=== PATIENT | female | born 1995 | race Hispanic/Latino ===

== ENCOUNTER 2018-10-10 02:41 | Emergency (ER) | payer SELFPAY ==
[2018-10-10 02:58] VITALS: BP 108/64
[2018-10-10] MEDS ORDERED: ZOFRAN ODT PO ONE (03:11)
--- NOTE | 2018-10-10 03:17 | Emergency Department Report ---
ED Abdominal Pain HPI - General Chief Complaint: Abdominal Pain Stated Complaint: BACK PAIN/ABD PAIN Time Seen by Provider: 10/10/18 03:10 Source: patient, EMS Mode of arrival: Wheelchair Limitations: No Limitations - History of Present Illness Initial Comments: Patient is a 23-year-old female who presents with sitting symptoms of abdominal cramping, nausea vomiting back pain and vaginal discharge, there is no fever no chills nausea or vomiting symptoms exacerbated by mouth intake. Patient denies concern for STD, last normal menstrual cycle was 3 months ago states cycles ar irregular. states she had Positive home test at home yesterday. There is no vaginal bleeding , no fever or chills, Complaint: abdominal pain Onset/Timin -: month(s) Location: LLQ, RLQ, suprapubic Radiation: L flank, R flank Migration to: no migration, suprapubic Severity: moderate Severity scale (0 -10): 2 Quality: cramping Consistency: intermittent Improves With: rest Worsens With: eating, movement Associated Symptoms: nausea, vomiting - Related Data LMP Date: 09/09/18 LMP (females 10-50): other (irreg) Previous Rx's Medication Instructions Recorded Last Taken Type Fluconazole [Diflucan TAB] 150 mg PO ONCE #1 tablet 10/10/18 Unknown Rx Ibuprofen [Motrin 800 MG tab] 800 mg PO Q8HR PRN #30 tablet 10/10/18 Unknown Rx Nitrofurantoin [place]/M-Cryst 100 mg PO BID 7 Days #14 capsule 10/10/18 Unknown Rx [Macrobid CAP] metroNIDAZOLE [Flagyl] 500 mg PO Q12HR 10 Days #20 tab 10/10/18 Unknown Rx Allergies Allergy/AdvReac Type Severity Reaction Status Date / Time Penicillins Allergy Rash Verified 10/10/18 02:46 ED Review of Systems ROS: Stated complaint: BACK PAIN/ABD PAIN Other details as noted in HPI Constitutional: denies: chills, fever Eyes: denies: eye pain, eye discharge, vision change ENT: denies: ear pain, throat pain Respiratory: denies: cough, shortness of breath, wheezing Cardiovascular: denies: chest pain, palpitations Endocrine: no symptoms reported Gastrointestinal: abdominal pain (cramping), nausea, vomiting. denies: diarrhe a, constipation Genitourinary: urgency, dysuria, frequency. denies: hematuria, discharge, abnormal menses, dyspareunia Musculoskeletal: denies: back pain, joint swelling, arthralgia Skin: denies: rash, lesions Neurological: denies: headache, weakness, paresthesias Psychiatric: denies: anxiety, depression Hematological/Lymphatic: denies: easy bleeding, easy bruising ED Past Medical Hx - Past Medical History Previous Medical History?: No - Surgical History Past Surgical History?: Yes Additional Surgical History: Right arm biopsy - Social History Smoking Status: Never Smoker - Medications Home Medications: Home Medications Medication Instructions Recorded Confirmed Last Taken Type Fluconazole [Diflucan TAB] 150 mg PO ONCE #1 tablet 10/10/18 Unknown Rx Ibuprofen [Motrin 800 MG tab] 800 mg PO Q8HR PRN #30 tablet 10/10/18 Unknown Rx Nitrofurantoin [place]/M-Cryst 100 mg PO BID 7 Days #14 capsule 10/10/18 Unknown Rx [Macrobid CAP] metroNIDAZOLE [Flagyl] 500 mg PO Q12HR 10 Days #20 tab 10/10/18 Unknown Rx ED Physical Exam - General Limitations: No Limitations General appearance: alert, in no apparent distress - Head Head exam: Present: atraumatic, normocephalic - Eye Eye exam: Present: normal appearance, PERRL, EOMI Pupils: Present: normal accommodation - ENT ENT exam: Present: normal orophraynx, mucous membranes moist, TM's normal bilaterally, normal external ear exam - Neck Neck exam: Present: normal inspection, full ROM. Absent: tenderness, lymphadenopathy, thyromegaly - Respiratory Respiratory exam: Present: normal lung sounds bilaterally, chest wall tenderness (rifht lateral chest wall ). Absent: respiratory distress, wheezes, rales, rhonchi, stridor - Cardiovascular Cardiovascular Exam: Present: regular rate, normal rhythm, normal heart sounds. Absent: systolic murmur, diastolic murmur, rubs, gallop - GI/Abdominal GI/Abdominal exam: Present: soft, tenderness (bilat lower ), normal bowel so unds. Absent: distended, guarding, rebound, rigid, mass, bruit, hernia - Rectal Rectal exam: Present: deferred - External exam: Present: normal external exam. Absent: erythema, swelling, lesions, lacerations, ecchymosis, bleeding Speculum exam: Present: erythema, vaginal discharge (white thick malodorous), cervical discharge (clear ). Absent: vaginal bleeding, foreign body, tissue, laceration - Extremities Exam Extremities exam: Present: normal inspection, full ROM, tenderness, pedal edema - Back Exam Back exam: Present: normal inspection, CVA tenderness (R) - Neurological Exam Neurological exam: Present: alert, oriented X3, CN II-XII intact, normal gait, reflexes normal. Absent: motor sensory deficit - Psychiatric Psychiatric exam: Present: normal affect, normal mood - Skin Skin exam: Present: warm, dry, intact, normal color. Absent: rash ED Course Vital Signs 10/10/18 02:53 Temperature 97.3 F L Pulse Rate 79 Respiratory 20 Rate Blood Pressure 108/64 O2 Sat by Pulse 100 Oximetry ED Medical Decision Making - Lab Data Result diagrams: 10/10/18 03:30 10/10/18 03:30 - Medical Decision Making HCG < 2, Wet prep normal, vaginal exam : pos for vaginal erythema white thick discharge malodorous, there is no fever no chills no n/v pt is tolerating po intake there is no abd tenderness on exam, GC/Chl cultures are pending , UA pos for wbc, leuk, mild rbc , there is no hematuria , there is urinary frequency and urgency, plan: tx for Exposure to UTI, Cover STI exposure, This no Pyelonephritis nor renal stone, there are no flank pain or cva tenderness, will tx with rocephin, azithromycin , dc to home with diflucan flagyl, macrobid pt will follow up with pcp in 2-3 days return to ed if symptoms worsen. pt verbalized agreement and understanding of discharge plan. Critical care attestation.: If time is entered above; I have spent that time in minutes in the direct care of this critically ill patient, excluding procedure time. ED Disposition Clinical Impression: UTI (urinary tract infection) Qualifiers: Urinary tract infection type: acute cystitis Hematuria presence: without hematuria Qualified Code(s): N30.00 - Acute cystitis without hematuria Vaginitis Qualifiers: Chronicity: acute Qualified Code(s): N76.0 - Acute vaginitis Disposition: DC-01 TO HOME OR SELFCARE Is pt being admited?: No Does the pt Need Aspirin: No Condition: Stable Instructions: Urinary Tract Infection in Women (ED), Vaginitis (ED), Bacterial Vaginosis (ED) Prescriptions: Fluconazole [Diflucan TAB] 150 mg PO ONCE #1 tablet metroNIDAZOLE [Flagyl] 500 mg PO Q12HR 10 Days #20 tab Nitrofurantoin [place]/M-Cryst [Macrobid CAP] 100 mg PO BID 7 Days #14 capsule Ibuprofen [Motrin 800 MG tab] 800 mg PO Q8HR PRN #30 tablet PRN Reason: pain Referrals: EDDA SPRINGER MD [Staff Physician] - 3-5 Days Forms: Work/School Release Form(ED) Time of Disposition: 04:58
[2018-10-10 03:30] LABS: Bacteria,Urine 1+ /HPF (Negative); Bilirubin,Urine NEG (Negative); Blood,Urine NEG (Negative); Color,Urine Yellow (Yellow); Mucus,Urine FEW /HPF; Protein,Urine <15 mg/dL mg/dL (Negative); Urobilinogen,Urine < 2.0 mg/dL (<2.0)
[2018-10-10 03:42] LABS: Basophils # (Auto) 0.1 K/mm3 (0.0-0.1); Basophils % (Auto) 0.7 % (0.0-1.8); Eosinophils # (Auto) 0.2 K/mm3 (0.0-0.4); Eosinophils % (Auto) 2.2 % (0.0-4.3); Hemoglobin 11.5 gm/dl (10.1-14.3); Lymphocytes # (Auto) 2.6 K/mm3 (1.2-5.4); Lymphocytes % (Auto) 33.6 % (13.4-35.0); Mean Corpuscular HGB Conc 33 % (30-34); Mean Corpuscular Volume 83 fl (79-97); Monocytes # (Auto) 0.5 K/mm3 (0.0-0.8); Monocytes % (Auto) 6.3 % (0.0-7.3); Platelet Count 254 K/mm3 (140-440); Red Blood Count 4.22 M/mm3 (3.65-5.03); Red Cell Distribution Width 13.1 % (13.2-15.2)
[2018-10-10 03:58] LABS: Alanine Aminotransferase 12 units/L (7-56); BUN/Creatinine Ratio 20; Blood Urea Nitrogen 12 mg/dL (7-17); Calcium 9.2 mg/dL (8.4-10.2); Hemolysis Index 11
[2018-10-10] MEDS ORDERED: ROCEPHIN/NS 1 GM/50 ML 1 GM/50 ML BAG IV ONE (04:21)
[2018-10-10] MEDS ORDERED: NACL 0.9% 1000 ML 1,000 ML IV ONE (04:21)
[2018-10-10] MEDS ORDERED: ZITHROMAX PO ONE (04:41)
== END 2018-10-10 05:30 | disposition home or self-care (01) ==
LOC: ED 02:41
DX: N39.0 Urinary tract infection, site not specified (principal); N76.0 Acute vaginitis; Z88.0 Allergy status to penicillin; Z98.890 Other specified postprocedural states
CPT/HCPCS: 36415; 80053; 81001; 83690; 84702; 85025; 87076; 87086; 87186; 87210; 87591; 99284; J0696; J7030; Q0162

== ENCOUNTER 2019-12-13 14:56 | Emergency (ER) | payer SELFPAY ==
[2019-12-13 15:15] VITALS: BP 113/69
--- NOTE | 2019-12-13 15:55 | XRay Report ---
HISTORY:wrist injury COMPARISON: None. TECHNIQUE: AP lateral and obliques views were obtained FINDINGS: Bones: No fracture or dislocation. Joint spaces: Maintained. Soft tissues: No significant abnormality. Additional findings: None. IMPRESSION: 1. No significant abnormality. Signer Name: Foreign Jones MD Signed: 12/13/2019 3:50 PM Workstation Name: [id number]
[2019-12-13] MEDS ORDERED: ACETAMINOPHEN 500 MG TAB PO ONE (20:11)
--- NOTE | 2019-12-13 22:06 | Emergency Department Report ---
Upper Extremity - HPI Chief Complaint: Extremity Injury, Upper Stated Complaint: RT HAND/WRIST PAIN Upper Extremity: Right Wrist (pain and swelling), Right Hand (pain) Occurred When: 2 Days Mechanism: Crush, Other (punched a wall in anger) Severity: severe Symptoms: Yes Pain with Movement, Yes Limited Range of Movement (due to pain), Yes Swelling, No Deformity, No Numbness, No Weakness, No Bruising/Ecchymosis Other History: Patient is a nulliparous 24-year-old -[place] female with no past medical history who presents to the ED with complaint of acute onset severe right wrist pain and right hand pain after she punched a wall in anger after she discovered that her boyfriend had been cheating on her 2 days ago. Patient states that in the last 24 hours she has not been able to perform any active range of motion with the right hand and wrist because of pain. Patient denies numbness and tingling or weakness of right hand or wrist, right elbow pain, neck pain, chest pain, shortness of breath, fall, dizziness or headache, nausea and vomiting. ED Review of Systems ROS: Stated complaint: RT HAND/WRIST PAIN Other details as noted in HPI Constitutional: denies: chills, fever Eyes: denies: eye pain, eye discharge, vision change ENT: denies: ear pain, throat pain Respiratory: denies: cough, shortness of breath, wheezing Cardiovascular: denies: chest pain, palpitations Endocrine: no symptoms reported Gastrointestinal: denies: abdominal pain, nausea, diarrhea Genitourinary: denies: urgency, dysuria, discharge Musculoskeletal: joint swelling (right wrist ), arthralgia (right wrist and hand pain ). denies: back pain Skin: denies: rash, lesions Neurological: denies: headache, weakness, paresthesias Psychiatric: denies: anxiety, depression Hematological/Lymphatic: denies: easy bleeding, easy bruising ED Past Medical Hx - Past Medical History Previous Medical History?: No - Surgical History Past Surgical History?: Yes Additional Surgical History: Right arm biopsy - Social History Smoking Status: Never Smoker - Medications Home Medications: Home Medications Medication Instructions Recorded Confirmed Last Taken Type Fluconazole (Nf) [Diflucan TAB] 150 mg PO ONCE #1 tablet 10/10/18 Unknown Rx Nitrofurantoin [place]/M-Cryst 100 mg PO BID 7 Days #14 capsule 10/10/18 Unknown Rx [Macrobid CAP] metroNIDAZOLE [Flagyl] 500 mg PO Q12HR 10 Days #20 tab 10/10/18 Unknown Rx Acetaminophen [Tylenol] 500 mg PO Q6HR PRN #30 tablet 12/13/19 Unknown Rx Cyclobenzaprine [Flexeril] 10 mg PO TID PRN #15 tablet 12/13/19 Unknown Rx Ibuprofen [Motrin 800 MG tab] 800 mg PO Q8HR PRN #30 tablet 12/13/19 Unknown Rx Upper Extremity Exam - Exam General: Vital signs noted. No distress. Alert and acting appropriately. Head and Torso: No HEENT Abnormality, No Neck Tenderness, No Chest/Lungs Abnormality, No Abdominal Tenderness, No Back Tenderness Shoulder Exam: Yes Normal Range of Motion in Shoulder, No Shoulder Tenderness, No Clavicle Tenderness, No Shoulder Deformity, No AC Joint Tenderness Arm Exam: No Arm/Humerus Tenderness, No Arm Deformity Elbow: No Elbow Tenderness, No Normal Range of Motion in Elbow, No Elbow Deformity Forearm: No Forearm Tenderness, No Forearm Deformity, No Pain with Pronation, No Pain with Supination Wrist: Yes Wrist Tenderness, No Normal ROM in Wrist (limited ROM due to pain), No Wrist Deformity, No Snuffbox Tenderness, No Pain with Axial Thumb Compression Hand: Yes Hand Tenderness, Yes Normal ROM in Digit(s), No Hand Deformity, No Digit Tenderness, No Digit(s) Deformity, No Tendon Dysfunction CMS Exam: No Broken Skin, No Normal Distal Pulses, No Normal Capillary Refill, No Normal Distal Sensation ED Course Vital Signs 12/13/19 15:14 Temperature 97.7 F Pulse Rate 84 Respiratory 16 Rate Blood Pressure 113/69 [Right] O2 Sat by Pulse 99 Oximetry ED Medical Decision Making - Radiology Data Radiology results: report reviewed, image reviewed Findings [facility] [address] [place] [address] XRay Report Signed Patient: RUBEN BANSAL MR#: [id number] : 1995 Acct:[id number] Age/Sex: 24 / F ADM Date: 12/13/19 Loc: ED Attending Dr: Ordering Physician: ED MD MILY Date of Service: 12/13/19 Procedure(s): XR wrist 3+V RT Accession Number(s): [id number] cc: ED MD MILY Fluoro Time In Minutes: HISTORY:wrist injury COMPARISON: None. TECHNIQUE: AP lateral and obliques views were obtained FINDINGS: Bones: No fracture or dislocation. Joint spaces: Maintained. Soft tissues: No significant abnormality. Additional findings: None. IMPRESSION: 1. No significant abnormality. Signer Name: Foreign Jones MD Signed: 12/13/2019 3:50 PM Workstation Name: [id number] Transcribed By: WG Dictated By: Foreign Jones MD Electronically Authenticated By: Foreign Jones MD Signed Date/Time: 12/13/191549 DD/ 49 TD/TT: - Medical Decision Making This is a nulliparous 24-year-old -[place] female with no past medical history who presents to the ED with complaint of acute onset severe right wrist pain and right hand pain after she punched a wall in anger after she discovered that her boyfriend had been cheating on her 2 days ago. Patient states that in the last 24 hours she has not been able to perform any active range of motion with the right hand and wrist because of pain. In the ED, patient is alert and oriented x3 and is not in distress but appears to be in pain. Patient was treated for pain in the ED. The right wrist x-ray shows no acute fractures or subluxations. Urinalysis unremarkable. Patient right wrist was splinted with a Velcro splint the patient was discharged home on pain medications and muscle relaxant and and was advised to follow-up with her primary care physician in 5 to 7 days for reevaluation or return to the ED immediately if symptoms get worse. - Differential Diagnosis wrist fracture; Boxer fracture; hand cotnusion; wrist sprain; hand sprain Critical care attestation.: If time is entered above; I have spent that time in minutes in the direct care of this critically ill patient, excluding procedure time. ED Disposition Clinical Impression: Sprain of right wrist Qualifiers: Encounter type: initial encounter Qualified Code(s): S63.501A - Unspecified sprain of right wrist, initial encounter Contusion of right hand Qualifiers: Encounter type: initial encounter Qualified Code(s): S60.221A - Contusion of right hand, initial encounter Disposition: DC- TO HOME OR SELFCARE Is pt being admited?: No Does the pt Need Aspirin: No Condition: Stable Instructions: Wrist Injury (ED), Hand Sprain (ED), Wrist Sprain (ED) Additional Instructions: Take medication with food, drink plenty of fluids and follow up with your Primary Care Physician in 7-10 days for reevaluation. Return to the ED immediately if symptoms get worse. Prescriptions: Acetaminophen [Tylenol] 500 mg PO Q6HR PRN #30 tablet PRN Reason: Pain , Severe (7-10) Cyclobenzaprine [Flexeril] 10 mg PO TID PRN #15 tablet PRN Reason: Muscle Spasm Ibuprofen [Motrin 800 MG tab] 800 mg PO Q8HR PRN #30 tablet PRN Reason: pain Referrals: [facility] [Provider Group] - 3-5 Days Forms: Work/School Release Form(ED) Time of Disposition: 22:05 Print Language: RUSSIAN
[2019-12-13 22:52] LABS: Bilirubin,Urine NEG (Negative); Blood,Urine NEG (Negative); Calcium Oxalate Crystals,Urine FEW; Color,Urine Amber (Yellow); Mucus,Urine 3+ /HPF; Protein,Urine <15 mg/dL mg/dL (Negative)
[2019-12-13 22:54] LABS: HCG Qualitative,Urine Negative (Negative)
== END 2019-12-13 23:05 | disposition home or self-care (01) ==
LOC: ED 14:56
DX: S63.501A Unspecified sprain of right wrist, initial encounter (principal); S60.221A Contusion of right hand, initial encounter; Z79.899 Other long term (current) drug therapy; Z88.0 Allergy status to penicillin; X58.XXXA Exposure to other specified factors, initial encounter; Y93.89 Activity, other specified; Y92.89 Other specified places as the place of occurrence of the external cause; Y99.8 Other external cause status
CPT/HCPCS: 81001; 81025; 99283